=== PATIENT | male | born 1950 | race Caucasian/White ===

== ENCOUNTER 2017-10-01 08:39 | Day surgery (SDC) | payer MEDICARE, BC ==
[2017-10-01] MEDS ORDERED: Lactated Ringers 1,000 ML IV SCH (09:15)
[2017-10-01] MEDS ORDERED: Propofol 200 MG/20 ML SDV ONE (09:25)
[2017-10-01] MEDS ORDERED: fentaNYL 100 MCG/2 ML SDV ONE (09:25)
[2017-10-01] MEDS ORDERED: Midazolam 1 MG/ML 2 ML SDV ONE (09:25)
--- NOTE | 2017-10-01 15:02 | OR ---
DATE OF PROCEDURE: 10/01/2017 PREOPERATIVE DIAGNOSIS: History of colon polyps. POSTOPERATIVE DIAGNOSES: 1. Two small colon polyps, 15 cm from the anal verge, adjacent to each other. 2. History of colon polyps. PROCEDURE PERFORMED: Colonoscopy to the cecum with biopsy resection of two small colon polyps adjacent to each other, sent to the laboratory as one specimen. SURGEON: Richie Grajeda MD. ANESTHESIA: IV anesthesia with monitored anesthesia care. INDICATION: This 67-year-old white male is referred for a colonoscopy. He has a history of colon polyps. His last colonoscopic exam, he says, was 7 years ago. I counseled him for the procedure including risks and alternatives, and he gave his informed consent to proceed. DESCRIPTION OF PROCEDURE: The patient was placed in the left lateral decubitus position. IV anesthesia was administered by the Anesthesia Service. Time-out was held. A rectal exam was performed, which was unremarkable. The flexible video Olympus colonoscope was introduced through his anus, up his rectum, out his colon all the way to the cecum. Once the cecum was reached, the scope was slowly withdrawn, examining the mucosa throughout. No mucosal abnormalities were noted until we reached 15 cm from anal verge. Here, we saw 2 small polyps adjacent to each other. These were removed with the biopsy forceps and sent to the laboratory as one specimen. The scope was retroflexed in the rectum with the distal rectum appearing unremarkable save for some minor hemorrhoidal tissue. The scope was straightened and removed. He tolerated the procedure well. Richie Grajeda MD /[id number] MTDD
== END 2017-10-01 11:36 | disposition home or self-care (01) ==
LOC: JP.SDS 08:39
PROVIDERS: ATTEND Surgery
DX: Z12.11 Encounter for screening for malignant neoplasm of colon (principal); K63.5 Polyp of colon; Z86.010 Personal history of colon polyps; Z98.890 Other specified postprocedural states
CPT/HCPCS: 45380; 88305; J2250; J2704; J3010; J7120